=== PATIENT | female | born 1950 | race Caucasian/White ===

== ENCOUNTER 2016-07-09 07:31 | Day surgery (SDC) | payer MEDICARE ==
[~2016-07-09] VITALS: Ht 172.7 cm; Wt 78.5 kg
[~2016-07-09 07:31] MED LIST: ZANTAC150 MG PO
[2016-07-09 08:36] VITALS: BP 98/67; Ht 172.7 cm; Wt 78.5 kg
[2016-07-09 09:01] LABS: HEMATOCRIT 40.5 % (36.0-48.0); HEMOGLOBIN 13.3 g/dL (12-16); MCH 30.6 pg (26.0-34.0); MCHC 32.8 g/dL (31.0-37.0); MCV 93.3 fL (80.0-100.0); MEAN PLATELET VOLUME 9.6 fL (7.4-10.4); RBC 4.34 10x6/uL (4.00-5.40); RDW 12.5 % (11.5-14.5); WBC 4.7 10x3/uL (4.8-10.8)
--- NOTE | 2016-07-09 15:10 | NUR ---
DISCHARGE INSTRUCTIONS AND RX FOR FLAGYL GIVEN, VOICED UNDERSTANDING. DISCHARGED HOME VIA WC.
--- NOTE | 2016-08-27 10:17 | OP ---
PATIENT NAME: NAHID FLORES MEDICAL RECORD: [id number] :54 LOCATION:[facility] ADMISSION DATE: SURGEON: BRENNON ADAMS MD DATE OF OPERATION: 07/09/2016 PREOPERATIVE DIAGNOSES: 1. Large distal rectal polyp. 2. Large distal sigmoid polyp. 3. Angioectasias of the cecum. POSTOPERATIVE DIAGNOSES: 1. Large distal rectal polyp. 2. Large distal sigmoid polyp. 3. Angioectasias of the cecum. 4. Another sessile polyp, 9 mm, within the sigmoid colon. PROCEDURES: 1. Total colonoscopy to cecum. 2. Argon plasma coagulation therapy to angioectasias of the cecum (radiofrequency ablation of benign colonic process). 3. Snare polypectomy of a rectal polyp. This was a piecemeal snare polypectomy. I ablated the base of the polyp with the argon plasma mfg assoc and then reinforced the area with clips as this was a deep resection. 4. Hot biopsy forceps polypectomy of the distal sigmoid polyp and then ablation of the remainder of the polyp with the argon plasma mfg assoc. 5. Hot biopsy forceps polypectomy times 1. SURGEON: Brennon Adams MD AGENCY SERVICE COORDINATOR: None. BLOOD LOSS: Minimal. ANESTHESIA: General. COMPLICATIONS: None. The risks, possible complications, alternatives to the procedure were explained to the patient. She elects to proceed. OPERATIVE COURSE: The patient was conveyed to the operating room electively on 07/09/2016. General anesthesia was induced by the anesthesia staff. The patient was placed in the Canales position. A digital rectal examination was performed. A colonoscope was inserted through the anus. It was easily advanced to the cecum. The prep was excellent. I irrigated in the cecum. I noted 2 patches of angioectasias. These were ablated utilizing the argon plasma mfg assoc utilizing the right colon setting in the forced mode. I then slowly withdrew the endoscope. I dragged the folds. The pullback was greater than a 14-minute pullback. I irrigated and aspirated extensively. The 9 mm sessile polyp was removed in its entirety utilizing the hot biopsy forceps polypectomy technique. The distal sigmoid polyp was biopsied utilizing the hot biopsy forceps polypectomy technique and the remainder of the polyp was ablated utilizing the argon plasma mfg assoc. In the distal rectum, this large rectal polyp was removed in a piecemeal fashion through 2 snare polypectomies. I then ablated the base of the polyp with the argon plasma mfg ass[employer]. As this was a OPERATIVE REPORT [id number] NAHID FLORES A pretty deep endoscopic resection, I reinforced the base of the polyp with 2 metallic clips. I slowly withdrew the endoscope. I will see the patient back in my office in 1 week. The distal rectal polyp is particularly worrisome. TRANSINT:[id number] Voice Confirmation ID: [id number] DOCUMENT ID: [id number] BRENNON ADAMS MD at 1017 CC: NICOLÁS GARNETT MD and KYLAH BURR [id number] DICTATION DATE: 07/09/16 1304 DIRECTOR OF CLINICAL APPLICATIONS: 07/09/16 1327 [facility] 07/09/16 [id number] [place] [address]
--- NOTE | 2016-08-27 10:17 | HP ---
PATIENT: NAHID FLORES MEDICAL RECORD: [id number] ACCOUNT: [id number] LOCATION:[facility] : 54 ADMISSION DATE: 07/09/16 HISTORY AND PHYSICAL EXAMINATION HISTORY OF PRESENT ILLNESS: I personally reviewed the endoscopic photos. I have personally reviewed the endoscopic report. There are angioectasia of the right colon. The patient also has 2 large polyps. These were cold biopsied. One is located in the distal sigmoid colon. The other is in the rectum. She states that the multilobular rectal polyp was a 4-5 cm. It was cold biopsied. The other polyp was a 2-2.5 cm in the distal sigmoid colon, it was cold biopsied as well. I am going to plan for colonoscopy with polypectomies utilizing argon plasma fine craft artist. ALLERGIES: TO ERYTHROMYCIN WHICH CAUSES DIZZINESS. HOME MEDICATIONS: Nexium, Zantac, tramadol, cyclobenzaprine, buspirone, and clonazepam. SOCIAL HISTORY: Smoked in the past, currently nonsmoker. PAST MEDICALHISTORY AND PAST SURGICAL HISTORY: Breast reduction, cholecystectomy, right ear surgery, knee surgery and gastroesophageal reflux, arthritis, and hyperlipidemia. REVIEW OF SYSTEMS: Negative for coronary artery disease or hypertension. Negative for CVA or seizures. The rest of the review of systems is negative other than as is described above. PHYSICAL EXAMINATION: GENERAL: The patient does not appear acutely ill. He does not appear chronically ill. VITAL SIGNS: Reviewed. HEAD: External ears appear normal. EYES: Extraocular movements are intact. NECK: Trachea is midline. CHEST: No intercostal retractions. PULMONARY: Nonlabored, no stridor. ABDOMEN: Nontender. IMPRESSION: 1. Angioectasia of the right colon. 2. Distal sigmoid colon polyp, large. 3. Rectal polyp, large. PLAN: As described above. TRANSINT:[id number] Voice Confirmation ID: [id number] DOCUMENT ID: [id number] HISTORY AND PHYSICAL [id number] NAHID FLORES ROBERT MD at 1017 CC: NICOLÁS GARNETT MD and KYLAH BURR [id number] DICTATION DATE: 07/09/16 1309 SERVICE DELIVERY MANAGER: 07/09/16 1328 [facility] 07/09/[address] [address]
== END 2016-07-09 15:10 | disposition home or self-care (01) ==
LOC: D.PAN 07:31 → D.OPS 10:15 → D.PAN 10:15
PROVIDERS: Anesthesiology
DX: D12.7 Benign neoplasm of rectosigmoid junction (principal); D12.5 Benign neoplasm of sigmoid colon; K55.21 Angiodysplasia of colon with hemorrhage; Z88.1 Allergy status to other antibiotic agents; Z87.891 Personal history of nicotine dependence; Z79.899 Other long term (current) drug therapy; K21.9 Gastro-esophageal reflux disease without esophagitis; M19.90 Unspecified osteoarthritis, unspecified site; E78.5 Hyperlipidemia, unspecified

== ENCOUNTER 2017-03-18 09:07 | Day surgery (SDC) | payer MEDICARE ==
[~2017-03-18] VITALS: Ht 172.7 cm; Wt 81.2 kg
--- NOTE | ~2017-03-18 | OP ---
PATIENT NAME: NAHID FLORES MEDICAL RECORD: [id number] :54 LOCATION:[facility] ADMISSION DATE: SURGEON: MISSAEL ADAMS MD DATE OF OPERATION: 03/18/2017 PREOPERATIVE DIAGNOSES: History of complex colon polyps. 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 POSTOPERATIVE DIAGNOSES: 1. History of complex colon polyps. 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 2. Some regrowth of the suspicious polyp, which was at 15 cm. 3. Four new sessile polyps, which appeared to be adenomatous and ranged from 9 mm to 1.3 cm. PROCEDURES: 1. Total colonoscopy to cecum. 2. Hot biopsy forceps polypectomy times 4. 3. Snare polypectomy with epinephrine injection through a sclerotherapy needle as well as endoscopic tattooing and ablation of the polyp with the argon plasma inner diameter grinder tool. SURGEON: Missael Adams MD WASH BOX OPERATOR: None. BLOOD LOSS: Minimal. ANESTHESIA: General. COMPLICATIONS: None. The risks, possible complications, and alternatives to the procedure were explained to the patient. She elects to proceed. We specifically discussed the possibility, with significant regrowth of a polyp, that she could have a situation where the polyp degrades into an invasive malignancy, thus requiring perhaps resection, chemotherapy, or radiation. OPERATIVE COURSE: The patient was conveyed to the operating room electively on 03/18/2017. General anesthesia was induced by the anesthesia staff. The patient was placed in the Canales position. A colonoscope was inserted through the anus. It was easily advanced to the cecum. The prep was adequate. I slowly withdrew the endoscope. The pullback was greater than 25-minute pullback. Four hot biopsy forceps polypectomies were performed. I then advanced a sclerotherapy needle. Epinephrine injection was performed at the regrowth of the polypoid lesion at 15 cm. I got a good lift of the polyp away from the colonic wall with no tethering or central umbilication. I view this as a favorable sign. I then advanced an endoscopic snare. I was able to snare the base of the polyp utilizing the cautery setting. The specimen was retrieved in its entirety. I then readvanced the endoscope. I ablated the remaining portion of the polyp OPERATIVE REPORT [id number] NAHID FLORES with the argon plasma inner diameter grinder tool with the right colon setting in the forced mode. In order to identify this area in the future, I elected to perform tattooing proximal and distal to the lesion. At 13 cm and then at 16 cm, I advanced the sclerotherapy needle and injected with Little ink. This was injected submucosally. I then withdrew into the rectum. A retroflexed view was obtained in the rectum. I then unretroflexed the scope and removed it under direct vision. I will see the patient in my office in 2-3 weeks. I will plan for her next colonoscopy with the argon plasma inner diameter grinder tool to take place in 6 months. TRANSINT:[id number] Voice Confirmation ID: [id number] DOCUMENT ID: [id number] MISSAEL ADAMS MD CC: [id number] DICTATION DATE: 03/18/171814 SYSTEMS SOFTWARE SPECIALIST: 03/18/172008 [facility] 03/18/17 [address] [place] [address]
[~2017-03-18 09:07] MED LIST changes: +NEXIUM40 MG PO
[2017-03-18 09:59] VITALS: BP 118/71; Ht 172.7 cm; Wt 81.2 kg
[2017-03-18 10:56] LABS: HEMATOCRIT 40.8 % (36.0-48.0); HEMOGLOBIN 13.8 g/dL (12-16); MCH 30.9 pg (26.0-34.0); MCHC 33.8 g/dL (31.0-37.0); MCV 91.5 fL (80.0-100.0); MEAN PLATELET VOLUME 9.9 fL (7.4-10.4); RBC 4.46 10x6/uL (4.00-5.40); RDW 12.6 % (11.5-14.5); WBC 4.7 10x3/uL (4.8-10.8)
--- NOTE | 2017-03-18 17:34 | NUR ---
1720 BACK FROM COLONOSCOPY WITH ARGON. ALERT AND VERBAL. RESP EVENA ND NONLABORED PASSED FLATUS.
--- NOTE | 2017-03-18 17:37 | NUR ---
172O BACK FROM COLONOSCOPY WITH ARGON. RESP EVEN AND NONLABORED. PASSING FLATUS.
--- NOTE | 2017-03-18 18:22 | NUR ---
1820 UP AND VOIDED IV DCD CATHETER INTACT. DISCHARGE INSTRUCTIONS GONE OVER AND VERBALLY UNDERSTANDS.
--- NOTE | 2017-03-18 18:22 | NUR ---
1750 DR. ADAMS TALKED TO PATIENT. TOLERATING FULL LIQUIDS.
--- NOTE | 2017-03-18 18:50 | NUR ---
1830 DISCHARGED WITH FRIEND TO HOME VIA W/C.
== END 2017-03-18 18:30 | disposition home or self-care (01) ==
LOC: D.OPS 09:07 → D.PAN 09:30 → D.OPS 11:45 → D.PAN 12:00 → D.OPS 12:10
PROVIDERS: Anesthesiology
DX: K63.5 Polyp of colon (principal); K21.9 Gastro-esophageal reflux disease without esophagitis; Z87.891 Personal history of nicotine dependence; Z01.812 Encounter for preprocedural laboratory examination

== ENCOUNTER 2017-08-15 13:18 | Emergency (ER) | payer MEDICARE ==
[2017-03-18 09:59] VITALS: BMI 27.2
[2017-08-15 13:38] LABS: APPEARANCE HAZY (CLEAR); COLOR YELLOW (YELLOW)
[2017-08-15 13:39] LABS: BILIRUBIN NEGATIVE (NEGATIVE); GLUCOSE NEGATIVE (NEGATIVE); KETONE NEGATIVE (NEGATIVE); NITRITE NEGATIVE (NEGATIVE); PROTEIN TRACE mg/dL (NEGATIVE); UROBILINOGEN NORMAL (NORMAL)
[2017-08-15 13:49] LABS: BASOPHILS 0.1 % (0-2); EOSINOPHILS 0.1 % (0-7); HEMATOCRIT 41.2 % (36.0-48.0); HEMOGLOBIN 13.9 g/dL (12-16); IMMATURE GRANULOCYTES 0.2 % (0-5); LYMPHOCYTES 6.8 % (15-50); MCH 31.4 pg (26.0-34.0); MCHC 33.7 g/dL (31.0-37.0); MCV 93.2 fL (80.0-100.0); MEAN PLATELET VOLUME 9.7 fL (7.4-10.4); MONOCYTES 5.4 % (2-11); NEUTROPHILS 87.4 % (40-80); PLATELET COUNT 189 10x3/uL (130-400); RBC 4.42 10x6/uL (4.00-5.40); RDW 12.1 % (11.5-14.5); WBC 13.9 10x3/uL (4.8-10.8)
[2017-08-15 13:50] LABS: BACTERIA MANY /hpf (NONE SEEN); EPITHELIAL CELLS 0-5 /hpf (0-5); MUCUS >1+ /lpf (NONE SEEN); RED CELLS - URINE >50 /hpf (0-5)
[2017-08-15 14:02] LABS: ANION GAP 12.1 mmol/L (8-16); BILIRUBIN - TOTAL 0.3 mg/dL (0.2-1.3); CALCIUM 9.3 mg/dL (8.5-10.1); CARBON DIOXIDE 30.4 mmol/L (21.0-32.0); CREATININE - SERUM 0.9 mg/dL (0.6-1.3); POTASSIUM - SERUM 4.5 mmol/L (3.5-5.1); PROTEIN - SERUM 7.4 g/dL (6.4-8.2)
== END 2017-08-15 17:00 | disposition home or self-care (01) ==
LOC: D.ER 13:18
PROVIDERS: Emergency Medicine
DX: N20.1 Calculus of ureter (principal); R10.9 Unspecified abdominal pain

== ENCOUNTER 2017-11-06 06:43 | Day surgery (SDC) | payer MEDICARE ==
[~2017-11-06] VITALS: Ht 172.7 cm; Wt 80.9 kg
--- NOTE | ~2017-11-06 | OP ---
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 There were 3 other small polyps, all sessile and all smaller than 1 cm in diameter. PROCEDURES: 1. Total colonoscopy to cecum. 2. Hot biopsy forceps polypectomies times 3. 3. Endoscopic cold biopsies of the scar and then retreatment of the scar at 14 cm with the argon plasma fiction and nonfiction writer prose. The risks, possible complications, and alternatives to procedures were explained to the patient. She elects to proceed. OPERATIVE COURSE: The patient was conveyed to the operating room electively on 11/06/2017. General anesthesia was induced by the anesthesia staff. The patient was placed in the Canales position. A digital rectal examination was performed. A colonoscope was inserted through the anus. It was easily advanced to the cecum. The prep was adequate. I slowly withdrew the endoscope. I irrigated and aspirated extensively. The pullback was greater than an 18-minute pullback. Three sessile polyps were noted, and these were removed utilizing the hot biopsy forceps polypectomy technique. I then identified the scar in the rectum. I performed cold endoscopic biopsies of the scar and then retreated the area with the argon plasma fiction and nonfiction writer prose with the right colon setting in the forced mode. A retroflexed view was obtained in the rectum. I then unretroflexed the scope and removed it under direct vision. Depending on the pathology, I may elect to perform another colonoscopy with the argon plasma fiction and nonfiction writer prose in a year or two or may return the patient's endoscopic care back over to her trimmer sorter. TRANSINT:[id number] Voice Confirmation ID: [id number] DOCUMENT ID: [id number] BRENNON ADAMS MD CC: NICOLÁS GARNETT MD, MACO AGUILAR MD, Luciana NEGRETE,[id number] DICTATION DATE: 11/30/17 1108 STATION TENDER: 11/30/17 1250 [facility] 11/06/17 [place] [address]
[2017-11-06 08:41] VITALS: BP 98/72; Ht 172.7 cm; Wt 80.9 kg
[2017-11-06 09:06] LABS: HEMATOCRIT 38.6 % (36.0-48.0); HEMOGLOBIN 13.1 g/dL (12-16); MCH 30.9 pg (26.0-34.0); MCHC 33.9 g/dL (31.0-37.0); MEAN PLATELET VOLUME 9.6 fL (7.4-10.4); RBC 4.24 10x6/uL (4.00-5.40); RDW 12.2 % (11.5-14.5); WBC 5.6 10x3/uL (4.8-10.8)
== END 2017-11-06 13:50 | disposition home or self-care (01) ==
LOC: D.OPS 06:43 → D.PAN 09:15 → D.OPS 09:15 → D.PAN 12:00 → D.OPS 13:50
PROVIDERS: Anesthesiology
DX: K63.5 Polyp of colon (principal); Z01.812 Encounter for preprocedural laboratory examination; Z86.010 Personal history of colon polyps

== ENCOUNTER 2020-11-30 15:00 | Outpatient (CLI) | payer MEDICARE ==
[2017-11-06 08:41] VITALS: BMI 27.1
== END 2020-11-30 23:59 | disposition home or self-care (01) ==
LOC: D.MAMMO 15:00
PROVIDERS: ATTEND Family Medicine
DX: Z12.31 Encounter for screening mammogram for malignant neoplasm of breast (principal)